=== PATIENT | female | born 1930 | race Caucasian/White ===

== ENCOUNTER 2017-02-05 22:24 | Inpatient (IN) | payer MEDICARE, OTHER ==
--- NOTE | ~2017-02-05 | DS ---
Discharge Summary [facility] [address] [facility] [place] [address] NAME: CHUCKY RODGERS : 31 STATUS : ADM IN PAT#: [id number] AGE: 86 ADM/REG DATE : 02/06/17 MR#: [id number] REPORT SERV DATE: 02/13/17 DICTATED BY: AURA CINTRON DATE: 02/12/17 REPORT STATUS : Draft TRANSCRIBED BY: MODL DATE: 02/12/17 ADMISSION DATE: 02/06/2017 DISCHARGE DATE: 02/13/2017 PRINCIPAL DIAGNOSIS: Right subcortical stroke. SECONDARY DIAGNOSES: 1. Severe right carotid stenosis. 2. Uncontrolled hypertension. 3. Dementia. HISTORY OF PRESENT ILLNESS: Please see dictation on 02/06/2017. HOSPITAL COURSE: The patient was admitted with TIA versus stroke symptoms. Stroke was in fact confirmed. She was found to have significant stenosis on her MRA which was revealed further to have evidence of 90-99% obstruction with an ulceration of the artery itself. She underwent carotid endarterectomy with good results. In the meantime, blood pressure was well controlled. She was weaned off clonidine due to cognitive side effects in the elderly, but she was placed on a regimen which included amlodipine with good results. She tolerated physical therapy well. If this patient go to a rehab center on 02/13/2017 she will follow up with Dr. Escobar in two weeks and Dr. Ribera, her primary care provider, following rehab discharge. ANTONIETA/GHASSAN Aura Cintron M.D. / [id number] CC: MD Maximo Villarreal MD Michael Greer, M.D.
--- NOTE | ~2017-02-05 | OP ---
Record Of Operation [facility] [address] [place]. [address] NAME: CHUCKY RODGERS : 31 STATUS : ADM IN PAT#: [id number] AGE: 86 ADM/REG DATE : 02/06/17 MR#: [id number] REPORT SERV DATE: 02/10/17 DICTATED BY: FLO PARRISH DATE: 02/10/17 REPORT STATUS : Draft TRANSCRIBED BY: MODL DATE: 02/10/17 DATE OF PROCEDURE: 02/09/2017 PREOPERATIVE DIAGNOSIS: High-grade right carotid stenosis with cerebrovascular accident. POSTOPERATIVE DIAGNOSIS: High-grade right carotid stenosis with cerebrovascular accident. PROCEDURE PERFORMED: Right carotid endarterectomy with bovine patch angioplasty. SURGEON: Flo Parrish M.D. TIN ROOFER: Gera Jimenez M.D. DESCRIPTION OF PROCEDURE: The patient was placed under general endotracheal anesthesia. Neck and chest prepped and draped in a sterile fashion. An incision was made along the anterior border of the sternocleidomastoid muscle. This carried through the skin and subcutaneous tissue. Platysma divided with the cautery unit. The deep cervical fascia was opened. The facial vein doubly clamped, divided, and tied with 3-0 silk suture. Common carotid artery dissected from surrounding tissue and encircled with vessel loops. The internal and external were dissected distally. She was already on a heparin drip and her ACT was over 3 minutes. The internal and external common were occluded. Arteriotomy made in the common extended through the bulb through a very tight irregular plaque in the internal. A #8 argyle shunt placed without difficulty. Endarterectomy carried out with the [place] elevator where the proximal plaque was cut sharply. The external done as an eversion, and the internal showed a small step-off that was tacked down with 6-0 Prolene suture. The opening in the vessel then closed with a bovine patch. Before the patch completed the shunt was removed. The patch completed and flow initially released to the external and then to the internal carotid artery. Surgicel placed over the patch. Irrigation carried out. Hemostasis was noted. The wound closed with 2-0 and 3-0 Vicryl for the deep tissue and the platysma. Skin closed with a 4-0 Monocryl subcuticular stitch. Sterile dressings applied. ESTIMATED BLOOD LOSS: 100 mL. She awoke from the operating room table moving all four extremities. MG/MODL Flo Parrish M.D. / [id number] CC: Record Of Operation [address] [address] NAME: CHUCKY RODGERS : 31 STATUS : ADM IN PAT#: [id number] AGE: 86 ADM/REG DATE : 02/06/17 MR#: [id number] REPORT SERV DATE: 02/10/17 DICTATED BY: FLO PARRISH DATE: 02/10/17 REPORT STATUS : Draft TRANSCRIBED BY: GHASSAN DATE: 02/10/17 Javier Baker MD
--- NOTE | ~2017-02-05 | DS ---
Discharge Summary [facility] [address] [place]. [address] NAME: CHUCKY RODGERS : 31 STATUS : DIS IN PAT#: [id number] AGE: 86 ADM/REG DATE : 02/06/17 MR#: [id number] REPORT SERV DATE: 02/16/17 DICTATED BY: TAMIKA COHN DATE: 02/15/17 REPORT STATUS : Draft TRANSCRIBED BY: MODL DATE: 02/15/17 ADMISSION DATE: 02/06/2017 DISCHARGE DATE: 02/15/2017 ADDENDUM: This dictation is an addition to the discharge summary dictated by Dr. Interiano on 02/13/2017, work number [id number]. The patient was discharged on 02/13/2017; however, unable to leave facility due to unavailability of beds at the longterm facility. I assumed care of the patient today, 02/14/2017. At the time of my assumption of care, the patient was hemodynamically stable. Placement has been found for the patient. Therefore, she will be discharged today. All other information in the discharge summary remains the same. RHIANNA/GHASSAN Tamika Cohn MD / [id number] CC: Tamika Cohn MD
--- NOTE | ~2017-02-05 | CN ---
Consultation Report [facility] [address] [place]. [address] NAME: CHUCKY RODGERS : 31 STATUS : ADM IN PAT#: [id number] AGE: 86 ADM/REG DATE : 02/06/17 MR#: [id number] REPORT SERV DATE: 02/08/17 DICTATED BY: DATE: REPORT STATUS : Draft TRANSCRIBED BY: MODDanna DATE: 02/08/17 CONSULTATION NOTE DATE OF CONSULTATION: 02/08/2017 REASON FOR CONSULTATION: Right grade 3 carotid stenosis. HISTORY OF PRESENT ILLNESS: Ms. Rodgers is a pleasant 86-year-old female, whom Vascular has asked to see in evaluation of possible symptomatic right grade 3 carotid artery stenosis. The patient was admitted to the hospital after going to the ER on Monday. She states that she fell multiple times at home and in general, felt very off balance. Her family members took her to the ER where she was evaluated and found to have acute stroke. The patient denies amaurosis fugax. No upper or lower extremity weakness or paresthesias. No slurred speech or facial droop. The patient does complain of generalized confusion and difficulty with thinking of some words. She again fell multiple times at home and has been generally weak since the onset of her symptoms this past Monday. She has no previous history of stroke. Her family members report that in November of 2016, she was found to have carotid stenosis after ultrasound by her primary care doctor was done. She was then referred to Vascular Surgery and seen by Dr. Dunn in [place]. Reportedly, Dr. Dunn did a carotid duplex, which showed bilateral grade 2 stenosis. However, the family members are unclear as to the exact amount of stenosis which was seen just a few months ago. She was to follow up in office with a repeat carotid duplex in 6 months. Her current symptoms have not improved, and she states that she feels much more stable when standing up and walking. Her blood pressure was also elevated upon admission and still remains so with a systolic in the 180s. She has been taking Plavix and aspirin prior to this hospital admission. PAST MEDICAL HISTORY: 1. Hypertension. 2. Neuropathy. 3. Osteoarthritis. 4. Cardiac murmur. 5. Chronic kidney disease, stage unknown. 6. Cataracts. 7. GERD. 8. History of gallstones. 9. Carotid artery stenosis. 10.Hyperlipidemia. PAST SURGICAL HISTORY: Hysterectomy, history of kidney stones with lithotripsy, and bilateral cataract removal. SOCIAL HISTORY: The patient is retired and lives alone, with family members who live close by. She denies tobacco, alcohol, or illicit drug use. She is . Consultation Report [facility] [place] [id number] [place]. [address] NAME: CHUCKY RODGERS : 31 STATUS : ADM IN PAT#: [id number] AGE: 86 ADM/REG DATE : 02/06/17 MR#: [id number] REPORT SERV DATE: 02/08/17 DICTATED BY: DATE: REPORT STATUS : Draft TRANSCRIBED BY: MODL DATE: 02/08/17 FAMILY MEDICAL HISTORY: Significant for diabetes, coronary artery disease, and hypertension. ALLERGIES: ASPIRIN. HOME MEDICATIONS: Allopurinol, Norvasc, Catapres, Caltrate, Refresh Tears, coenzyme Q10, Cymbalta, Lasix, Neurontin, levothyroxine, Namenda, Centrum Silver, fish oil, Prilosec, Klor Con, pravastatin, Exelon, grape seed extract, black lucero extract, magnesium, and Exforge. REVIEW OF SYSTEMS: 14-point review of systems was completed. Pertinent positives included in the history of present illness. All others negative. PHYSICAL EXAMINATION: VITAL SIGNS: Blood pressure 143/65, O2 saturation 95% on room air, oral temperature 97.9, pulse 90, respirations 18. GENERAL: The patient is alert and oriented x3, resting quietly in bedside recliner, in no apparent distress. HEENT: Head is atraumatic and normocephalic. Face symmetric. Mucous membranes are pink and moist. Tongue is midline. NECK: Trachea midline. No JVD. Loud mechanical right carotid bruit noted. RESPIRATORY: Respirations are even and nonlabored. Breath sounds clear to auscultation throughout. CARDIOVASCULAR: Heart rate and rhythm regular. No murmurs, rubs, or gallops. ABDOMEN: Soft, nontender, and nondistended. No pulsatile masses or abdominal bruits. Bowel sounds are active x4. EXTREMITIES: [place], warm, and dry. No edema. Pedal pulses are easily palpable bilaterally. LYMPH: No lymphadenopathy. NEURO: Mild essential tremors noted, bilateral upper extremities. Answering questions appropriately. Sensation is intact. [employer] are equal. PSYCH: Appropriate mood and affect. IMAGING: MRI of the brain done on 02/06/2017: Shows acute right periventricular region infarct in the mid centrum semiovale right side. There is no mass effect. No hemorrhage. Carotid duplex: Carotid duplex shows high grade stenosis seen within the right internal carotid artery with peak systolic velocities in the proximal of 661, end-diastolic velocity of 274. The mid internal carotid artery has a peak systolic velocity of 254 with an end- diastolic velocity of 73. Vertebral flow was antegrade. Left carotid artery, consistent with approximately 50% stenosis. Vertebral flow was antegrade. This duplex shows findings significant for high grade right carotid artery stenosis. ASSESSMENT AND PLAN: 1. Symptomatic grade 3 right carotid artery stenosis. 2. Acute cerebrovascular accident. I have discussed this patient with Dr. Flo Escobar and both, he and I have examined the Consultation Report [address] [place]. [address] NAME: CHUCKY RODGERS : 32 STATUS : ADM IN [facility]#: [id number] AGE: 86 ADM/REG DATE : 02/06/17 MR#: [id number] REPORT SERV DATE: 02/08/17 DICTATED BY: DATE: REPORT STATUS : Draft TRANSCRIBED BY: MODL DATE: 02/08/17 patient and reviewed her imaging studies. It was felt that she will require a right carotid endarterectomy as soon as possible. We are planning for surgery tomorrow afternoon. The risks and benefits of the procedure were explained to the patient and her family members, both of which verbalized understanding. We will continue her Plavix, and she will be started on a heparin drip. She will be made n.p.o. after midnight. Thank you for this consultation. KANDICE/GHASSAN Mignon Zelaya NP / [id number] CC: Javier Collins James R.
--- NOTE | ~2017-02-05 | HP ---
History And Physical [place] [address] [facility] [place]. [address] NAME: CHUCKY RODGERS : 31 STATUS : ADM Bimal PAT#: [id number] AGE: 86 ADM/REG DATE : 02/05/17 MR#: [id number] REPORT SERV DATE: 02/06/17 DICTATED BY: CAROLINA PAYAN DATE: 02/06/17 REPORT STATUS : Draft TRANSCRIBED BY: GHASSAN DATE: 02/06/17 DATE OF ADMISSION: 02/05/2017 CHIEF COMPLAINT: Falls and unsteadiness today with headache. HISTORY OF PRESENT ILLNESS: The patient is an 86-year-old female with past medical history of hypertension, neuropathy, mild CKD, reflux, arthritis, who presents after having a fall that occurred at approximately 1 o'clock. Did have four additional episodes today. Although the patient does have arthritic changes and has had occasional falls, she has not ever had this many at a certain time including one uniquely where she was standing and just fell straight backwards; however, her family members were there to catch her and give her support. The patient was aware of all these episodes but is having difficulty with balance fairly acutely today that have been constant, moderate. Additionally, the patient has had headache that has been dull without radiating. No nausea, vomiting, fever, chills, or diarrhea. Has had mild decreased p.o. intake over the last few days. Has had weight gain though. No worsening symptoms or relieving symptoms. Symptoms are reproducible by changing the patient's position. The patient has also noted to be hypertensive in the emergency room. The patient typically ambulates with cane but still not able to provide stability with this. REVIEW OF SYSTEMS: Additional 10-point review of systems negative for that noted in the HPI. PAST MEDICAL HISTORY: Hypertension; nerve ending neuropathy; arthritis deformities in hand; heart murmur; CKD; eye problems with cataract last year, bilateral removal; reflux; and gallstones. Sees Dr. Jones for neuropathy and had appointment at the end of this week. SURGICAL HISTORY: Hysterectomy, kidney stones, and bilateral cataracts. SOCIAL HISTORY: Accompanied by son, who is at bedside. Is retired. No smoking, alcohol, or illicits. FAMILY HISTORY: Noted for diabetes, coronary artery disease, hypertension. No cancers. ALLERGIES: ASPIRIN. HOME MEDICATIONS: Allopurinol, Norvasc, Refresh Tears, Caltrate, Catapres, CoQ10, Cymbalta, Lasix, Neurontin, levothyroxine, Namenda, Centrum, fish oil, Prilosec, Klor-Con, pravastatin, Exelon, grape seed, black lucero, magnesium, Exforge. PHYSICAL EXAMINATION: VITAL SIGNS: The patient's initial blood pressure was 213/100, has decreased down to 188/70s; temperature 98.9; pulse 97; respirations 22; O2 saturations 96% on room air. GENERAL: No acute distress. Elderly, pleasant. EYES: No scleral icterus. EOMI. ENT: Nares patent. Tongue midline. No JVD. History And Physical [address] [address] NAME: CHUCKY RODGERS : 31 STATUS : ADM Bimal PAT#: [id number] AGE: 86 ADM/REG DATE : 02/05/17 MR#: [id number] REPORT SERV DATE: 02/06/17 DICTATED BY: CAROLINA PAYAN DATE: 02/06/17 REPORT STATUS : Draft TRANSCRIBED BY: GHASSAN DATE: 02/06/17 RESPIRATORY: Clear to auscultation. No wheezes or rales. CV: Regular rate. No rubs but positive systolic ejection murmur, 2/6. GI: Soft, nontender, nondistended. Bowel sounds positive. : Deferred. MUSCULOSKELETAL: Moves all extremities x4. Does have resting tremor, right side. Skin: Warm, dry, thin skin. LYMPH: Trace edema bilaterally. HEME: No bleeding or bruising. NEURO: Mild essential tremor, right side. Is reported to have a shuffling gait, however, not tested at this time. The patient does have dizziness and almost reproducible falling episode when changing from sitting to standing. The patient unable to hold self up or sit up without falling directly backwards. No nystagmus. Sensation is still grossly intact. PSYCH: Appropriate mood and affect. LABORATORY DATA: BNP 108.4. Sodium 144, potassium 3.6, chloride 108, bicarb 26, BUN and creatinine 25 and 1.23, glucose 151. Magnesium 1.9. Troponin negative. Calcium 9.3. Cervical spine: No acute fracture or malalignment of the cervical spine, moderate to severe multilevel degenerative changes at C3-C7 and T1-T2. 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 WBC 8.4, H and H 13 and 37.4, MCV 98.4, platelets 195. INR 1.0. ASSESSMENT AND PLAN: 1. Accelerated hypertension. 2. Headache. 3. Unsteadiness. 4. Falls. 5. Arthritis. 6. Polypharmacy. 7. Carotid disease. PLAN: 1. For axillary hypertension, the patient has had improvement with increased clonidine but will need slow titration in p.r.n. as needed. Optimize as tolerated. As well while on low-dose beta ana, we will need to check orthostatics due to frequent falling episodes. 2. Headache. Check MRI head. Slightly improved with blood pressure improvement. Has had four to five falls. [address] head has been performed and neck. Monitor clinically. 3. Unsteadiness. We will check MRI/MRA with history of carotid disease and hypertension. Would like to rule out posterior vascular or cerebellar event. TIA orders are initiated. Non-tPA candidate seconds to acute issues that began at 1:00 p.m. but has had five subsequent issues although the patient unable to appreciate any additional focal neurologic deficits except that noted above. History And Physical [address] [address] NAME: CHUCKY RODGERS : 31 STATUS : ADM Bimal PAT#: [id number] AGE: 86 ADM/REG DATE : 02/05/17 MR#: [id number] REPORT SERV DATE: 02/06/17 DICTATED BY: CAROLINA PAYAN DATE: 02/06/17 REPORT STATUS : Draft TRANSCRIBED BY: MODL DATE: 02/06/17 4. Falls. PT workup for workup as above and does have positive arthritis-type symptoms. 5. Arthritis p.r.n. 6. Polypharmacy discussed with family. Information is given to the family. 7. Carotid disease. The patient reported to have significant disease, approximately 70% percent on one side. We will need to confirm these. We will get MRI/MRA. All questions answered with the patient and family. DISPOSITION: Pending findings from above. LEIAN/MADDIEL Carolina Payan MD / [id number]
--- NOTE | ~2017-02-05 | CN ---
Consultation Report [facility] [address] [place]. [address] NAME: CHUCKY RODGERS : 32 STATUS : ADM IN PAT#: [id number] AGE: 86 ADM/REG DATE : 02/06/17 MR#: [id number] REPORT SERV DATE: 02/08/17 DICTATED BY: DATE: REPORT STATUS : Draft TRANSCRIBED BY: MODL DATE: 02/08/17 NEUROLOGY CONSULTATION DATE OF CONSULTATION: 02/08/2017 REASON FOR CONSULT: Stroke. HISTORY OF PRESENT ILLNESS: This is an 86-year-old female presented to [facility] on 02/05/2017 secondary to frequent falls, with the patient has difficulty ambulating and has frequent falls. The patient's family also noticed the left-sided hemiparesis, especially with the left hand side and has difficulty holding on to things and not working as properly as before. The patient since the hospitalization was also noted to have mild delirium with the patient being confused regarding the place she is at and has a question of hallucination, at baseline the patient does have some memory difficulties, still recognize the family members, but seemed to have some difficult times knowing what year it is and the time. The patient at baseline is followed by Dr. Jones at [facility]. Prior to the hospitalization, no recent illness was noted. No fever, chill, nausea, vomiting, chest pain, or shortness of breath was reported and no recent changes in medication were otherwise reported. The patient's family denies any complaints of numbness and denies any dysarthria or language difficulties with the patient's symptoms, reports stable symptoms since the hospitalization. REVIEW OF SYSTEMS: Negative except for those mentioned in the HPI. PAST MEDICAL HISTORY: Significant for hypertension as well as neuropathy, arthritis with the patient noted to have a history of heart murmur as well as chronic kidney disease, bilateral cataract surgeries in the past with the patient also noted to have a history of dementia, seen by Dr. Simone Jones. SOCIAL HISTORY: Denies tobacco, alcohol, or recreational drug usage per medical record. FAMILY HISTORY: Significant for diabetes, coronary artery disease, hypertension. ALLERGIES: THE PATIENT WAS NOTED TO HAVE ALLERGIES TO ASPIRIN AT THE TIME OF EVALUATION. MEDICATIONS: The patient's home medication consist of allopurinol, Norvasc, Refresh tears, Caltrate, Catapres, coenzyme Q10, Cymbalta, Lasix, Neurontin, levothyroxine, Namenda, Centrum, fish oil, Prilosec, potassium, pravastatin, Exelon, magnesium, Exforge. Again, review of systems otherwise negative except for those mentioned in the HPI. PHYSICAL EXAMINATION: VITAL SIGNS: Overnight, the patient was noted to have vital signs with T-max of 99.7, heart Consultation Report [address] [place]. [address] NAME: CHUCKY RODGERS : 31 STATUS : ADM IN PAT#: [id number] AGE: 86 ADM/REG DATE : 02/06/17 MR#: [id number] REPORT SERV DATE: 02/08/17 DICTATED BY: DATE: REPORT STATUS : Draft TRANSCRIBED BY: MODDanna DATE: 02/08/17 rate of 70 to 90, respirations of 16 to 20, and blood pressure of 143 to 186 over 65 to 86. GENERAL: The patient is a well developed, well nourished, in no acute distress. CARDIOVASCULAR: Regular rate and rhythm. Mild cardiac murmur was otherwise auscultated. The patient was also noted to have carotid bruits on the right carotid artery. No carotid bruits were auscultated in the left carotid artery. PULMONARY: Clear to auscultation bilaterally. NEUROLOGICAL EXAMINATION: Generally, the patient is alert and oriented to person, place, but not to year or month. The patient is able to follow simple and 2-step commands. Mild decreased attention span. At the time of evaluation, difficulties with registration and recall. Cranial nerves II through XII, pupils equal, round, and reactive to light. Horizontal eye movement was noted to be intact with intact blink to threat response. The patient is able to follow simple and two-step commands, but has some difficulties with the complex commands. Reports symmetrical facial sensation. Symmetrical facial expression. Midline tongue. Normal palatal movement. Mild decreased hearing in bilateral ears. The patient demonstrated 5/5 right upper and right lower extremity strength with the patient noted to have a 4/5 left upper extremity strength and 4/5 left lower extremity strength. The patient does demonstrate normal [id number]-[id number] examination on the right upper extremity. Deep tendon reflex was hyperreflexic at 3+ in the left upper and left lower extremity, 2+ in the right upper and right lower extremity. Downgoing toe on the right plantar reflex. Upgoing toe on the left plantar reflex. Gait was not evaluated due to weakness. LABORATORY STUDIES: Demonstrated white blood cell count of 9.0, hemoglobin of 13.3, hematocrit of 39.6, platelet count of 181. Chemistry panel; sodium 143, potassium 3.8, chloride 109, bicarb 24, BUN of 20, creatinine 1.12, glucose of 96, calcium of 9.2. Fasting lipid panel; cholesterol of 141, HDL of 54, LDL of 48, triglyceride of 197. Vitamin B12 of 948, folate of 62. Serum TSH of 2.21, free T4 of 1.15. Hemoglobin A1c of 5.5. Urinalysis demonstrated negative leukocyte esterase, negative nitrites. The patient's MRI of the brain demonstrated right subcortical periventricular small stroke with the patient's MRA of the neck demonstrated the critical stenosis in the right internal carotid artery. Carotid Doppler study confirmed category 3 stenosis in the right internal carotid artery by velocity. Echocardiogram, otherwise demonstrated no apical thrombus. IMPRESSION: 1. Right subcortical middle cerebral artery stroke secondary to embolic events secondary to the patient's aspirin allergies. We will continue Plavix. Meanwhile, we will continue Lipitor, PT/OT, rehab placement. The patient's symptoms started on 02/05/2017. NIH stroke scale was noted to be 4. 2. Right internal carotid artery stenosis. The patient is scheduled for right carotid endarterectomy in the morning. RECOMMENDATION: 1. Plavix. 2. Right carotid endarterectomy in the morning. Consultation Report [address] [address] NAME: CHUCKY RODGERS : 32 STATUS : ADM IN [facility]#: [id number] AGE: 86 ADM/REG DATE : 02/06/17 MR#: [id number] REPORT SERV DATE: 02/08/17 DICTATED BY: DATE: REPORT STATUS : Draft TRANSCRIBED BY: MODL DATE: 02/08/17 3. Lipitor 80 mg p.o. at bedtime. 4. PT/OT. 5. Rehab. 6. We will not start aspirin as the patient was noted to have allergy to aspirin. [facility]/MADDIEL Grover Parekh MD / [id number] CC: Javier Baker JAMES R.
[~2017-02-05 22:24] MED LIST: CALTRA600D PO; CENTRUM TAB1 TAB PO; CYMBALTA30 PO; EXELON9.5T TOP; EXFORGE1 TA1 PO; FISH OIL1200 MG PO; GRAPE SEED EXTRACT PO; KLOR-CON M2020 MEQ PO; L40 PO; LYRICA25 PO; MAGNESIUM PO; NATURA2 OPH; PRAVACHOL40 MG PO; PRILO PO; RESTASIS OPH; SYN88 PO; VITAMIN D3 PO; Z300 PO
[2017-02-05 22:53] LABS: BASOPHILS 0.2 %; BASOPHILS ABSOLUTE 0.02 10/3/uL (0.0-0.16); EOSINOPHILS 3.1 %; EOSINOPHILS ABSOLUTE 0.26 10/3/uL (0.0-0.53); HEMATOCRIT 37.4 % (36.0-48.0); IMMATURE GRANULOCYTES 0.2 %; IMMATURE GRANULOCYTES ABSOLUTE 0.02 10/3/uL (0.0-0.11); LYMPHOCYTES 32.2 %; LYMPHOCYTES ABSOLUTE 2.71 10/3/uL (0.67-4.30); MEAN CORPUS HGB CONC 34.8 g/dL (32.0-36.0); MEAN CORPUSCULAR HEMOGLOB 34.2 pg (26.0-34.0); MEAN CORPUSCULAR VOLUME 98.4 fL (80-100); MEAN PLATELET VOLUME 10.4 fL (9.2-13.0); MONOCYTES 6.7 %; MONOCYTES ABSOLUTE 0.56 10/3/uL (0.21-1.20); NEUTROPHILS 57.6 %; NEUTROPHILS ABSOLUTE 4.84 10/3/uL (2.02-8.40); PLATELET COUNT 195 10/3/uL (150-400); RBC DISTRIBUTION WIDTH 13.2 % (12.0-16.0); WHITE BLOOD CELLS 8.4 10/3/uL (4.5-10.5)
[2017-02-05 22:54] LABS: MANUAL DIFF NO %
[2017-02-05 23:00] LABS: PARTIAL THROMBO TIME 30.2 SEC (22.5-37.2); PROTIME (NOT ORD) 13.3 SEC (12.0-14.5)
[2017-02-05 23:09] LABS: CALCIUM, SERUM 9.3 MG/DL (8.5-10.4); CHEST PAIN PROFILE TAT 0 Hrs 22 Mins; CHLORIDE, SERUM 108 MMOL/L (96-112); CO2 (CARBON DIOXIDE) 26 MMOL/L (24-34); CREATININE 1.23 MG/DL (0.55-1.02); GFR AFRICAN AMERICAN 46 ML/MIN (>=60); GFR NON AFRICAN AMERICAN 40 ML/MIN (>=60); GLUCOSE, SERUM 151 MG/DL (60-99); SODIUM, SERUM 144 MMOL/L (135-148); TROPONIN I <0.02 NG/ML (<0.05)
[2017-02-05 23:11] LABS: BUN (BLOOD UREA NITROGEN) 25 MG/DL (6-23); POTASSIUM, SERUM 3.6 MMOL/L (3.5-5.3)
[2017-02-05] MEDS ORDERED: PRILO PO (23:20)
[2017-02-05] MEDS ORDERED: LEVOTHYROXIN88 MCG PO (23:21)
[2017-02-05] MEDS ORDERED: FISH-EPA1000 MG PO (23:21)
[2017-02-05] MEDS ORDERED: CENTRUM PO (23:21)
[2017-02-05] MEDS ORDERED: NORV25 PO (23:22)
[2017-02-05] MEDS ORDERED: Z300 PO (23:22)
[2017-02-05] MEDS ORDERED: KLOR-CON M2020 MEQ PO (23:22)
[2017-02-05] MEDS ORDERED: NAMENXR28 PO (23:23)
[2017-02-05] MEDS ORDERED: PRAVACHOL40 MG PO (23:23)
[2017-02-05] MEDS ORDERED: NEUR100 PO (23:23)
[2017-02-05] MEDS ORDERED: CO Q-10100 MG PO (23:23)
[2017-02-05] MEDS ORDERED: CALTRA600D PO (23:23)
[2017-02-05] MEDS ORDERED: BLACK CHERRY PO (23:24)
[2017-02-05] MEDS ORDERED: [UNRECOGNIZED DRUG - OTHER] PO (23:24)
[2017-02-05] MEDS ORDERED: CYMBALTA30 PO (23:25)
[2017-02-05] MEDS ORDERED: MAGNESIUM PO (23:25)
[2017-02-05] MEDS ORDERED: EXFORGE 5/320 PO (23:26)
[2017-02-05] MEDS ORDERED: L40 PO (23:26)
[2017-02-05] MEDS ORDERED: REFRESH OPH (23:27)
[2017-02-05] MEDS ORDERED: EXELON1 EACH TOP (23:27)
[2017-02-05] MEDS ORDERED: CATPATCH1 TOP (23:27)
[2017-02-06 01:17] LABS: ASCORBIC ACID (UR NOT ORDER) NEG (NEG); BILIRUBIN, URINE NEGATIVE (NEG); ER URINALYSIS TAT 0 Hrs 00 Mins; KETONE, URINE NEGATIVE (NEG); LEUKOCYTE ESTERASE(NOT OR NEG (NEG); NITRITE (URINE) NEG (NEG); WBC (NOT ORDERED) (RFLEX) 1 (0-5)
[2017-02-06 03:49] LABS: CHOL/HDL RATIO(NOT ORDER) 2.6 (0-5); CHOLESTEROL 141 MG/DL (< 200); CPK 92 U/L (0-200); FREE T4 1.15 NG/DL (0.76-1.46); HDL CHOLESTEROL 54 MG/DL (> 49); LDL CHOLESTEROL 48 MG/DL (< 130); NON-HDL CHOLESTEROL 87 MG/DL (< 160); TRIGLYCERIDE 197 MG/DL (< 150)
[2017-02-06 14:46] LABS: TROPONIN I <0.02 NG/ML (<0.05)
[2017-02-06 14:48] LABS: CK-MB 2.3 NG/ML; CPK 71 U/L (0-200)
[2017-02-06 15:35] LABS: BUN (BLOOD UREA NITROGEN) 19 MG/DL (6-23); CHLORIDE, SERUM 108 MMOL/L (96-112); CO2 (CARBON DIOXIDE) 25 MMOL/L (24-34); CREATININE 1.02 MG/DL (0.55-1.02); GFR AFRICAN AMERICAN 58 ML/MIN (>=60); GFR NON AFRICAN AMERICAN 50 ML/MIN (>=60); GLUCOSE, SERUM 131 MG/DL (60-99); POTASSIUM, SERUM 3.5 MMOL/L (3.5-5.3); SODIUM, SERUM 143 MMOL/L (135-148)
[2017-02-07 00:06] LABS: CK-MB 3.1 NG/ML; CPK 97 U/L (0-200)
[2017-02-07 08:44] LABS: BUN (BLOOD UREA NITROGEN) 15 MG/DL (6-23); CALCIUM, SERUM 9.6 MG/DL (8.5-10.4); CHLORIDE, SERUM 107 MMOL/L (96-112); CO2 (CARBON DIOXIDE) 26 MMOL/L (24-34); CREATININE 1.04 MG/DL (0.55-1.02); GFR AFRICAN AMERICAN 57 ML/MIN (>=60); GFR NON AFRICAN AMERICAN 49 ML/MIN (>=60); GLUCOSE, SERUM 119 MG/DL (60-99); POTASSIUM, SERUM 3.7 MMOL/L (3.5-5.3); SODIUM, SERUM 142 MMOL/L (135-148)
[2017-02-08 04:52] LABS: BASOPHILS 0.1 %; BASOPHILS ABSOLUTE 0.01 10/3/uL (0.0-0.16); EOSINOPHILS 2.2 %; HEMATOCRIT 39.6 % (36.0-48.0); HEMOGLOBIN 13.3 g/dL (12.0-16.0); IMMATURE GRANULOCYTES 0.6 %; IMMATURE GRANULOCYTES ABSOLUTE 0.05 10/3/uL (0.0-0.11); LYMPHOCYTES 26.8 %; MEAN CORPUS HGB CONC 33.6 g/dL (32.0-36.0); MEAN CORPUSCULAR HEMOGLOB 33.3 pg (26.0-34.0); MEAN PLATELET VOLUME 9.8 fL (9.2-13.0); MONOCYTES 8.8 %; MONOCYTES ABSOLUTE 0.79 10/3/uL (0.21-1.20); NEUTROPHILS 61.5 %; PLATELET COUNT 181 10/3/uL (150-400); RBC DISTRIBUTION WIDTH 13.4 % (12.0-16.0)
[2017-02-08 04:53] LABS: MANUAL DIFF NO %
[2017-02-08 05:16] LABS: CALCIUM, SERUM 9.2 MG/DL (8.5-10.4); CHLORIDE, SERUM 109 MMOL/L (96-112); CO2 (CARBON DIOXIDE) 24 MMOL/L (24-34); CREATININE 1.12 MG/DL (0.55-1.02); GFR AFRICAN AMERICAN 52 ML/MIN (>=60); GFR NON AFRICAN AMERICAN 45 ML/MIN (>=60); GLUCOSE, SERUM 96 MG/DL (60-99); POTASSIUM, SERUM 3.8 MMOL/L (3.5-5.3); SODIUM, SERUM 143 MMOL/L (135-148)
[2017-02-08 05:17] LABS: BUN (BLOOD UREA NITROGEN) 20 MG/DL (6-23)
[2017-02-09 06:42] LABS: CALCIUM, SERUM 9.2 MG/DL (8.5-10.4); CHLORIDE, SERUM 108 MMOL/L (96-112); CO2 (CARBON DIOXIDE) 24 MMOL/L (24-34); CREATININE 1.45 MG/DL (0.55-1.02); GFR AFRICAN AMERICAN 38 ML/MIN (>=60); GFR NON AFRICAN AMERICAN 33 ML/MIN (>=60); GLUCOSE, SERUM 113 MG/DL (60-99); SODIUM, SERUM 142 MMOL/L (135-148)
[2017-02-09 06:44] LABS: BUN (BLOOD UREA NITROGEN) 35 MG/DL (6-23)
[2017-02-10 04:02] LABS: CALCIUM, SERUM 8.9 MG/DL (8.5-10.4); CHLORIDE, SERUM 106 MMOL/L (96-112); CO2 (CARBON DIOXIDE) 25 MMOL/L (24-34); CREATININE 1.44 MG/DL (0.55-1.02); GFR AFRICAN AMERICAN 38 ML/MIN (>=60); GFR NON AFRICAN AMERICAN 33 ML/MIN (>=60); POTASSIUM, SERUM 4.1 MMOL/L (3.5-5.3); SODIUM, SERUM 142 MMOL/L (135-148)
[2017-02-10 04:16] LABS: BUN (BLOOD UREA NITROGEN) 39 MG/DL (6-23); GLUCOSE, SERUM 136 MG/DL (60-99)
[2017-02-12 07:02] LABS: BASOPHILS 0.3 %; BASOPHILS ABSOLUTE 0.02 10/3/uL (0.0-0.16); EOSINOPHILS 2.4 %; EOSINOPHILS ABSOLUTE 0.14 10/3/uL (0.0-0.53); HEMOGLOBIN 12.5 g/dL (12.0-16.0); IMMATURE GRANULOCYTES 0.7 %; IMMATURE GRANULOCYTES ABSOLUTE 0.04 10/3/uL (0.0-0.11); LYMPHOCYTES 27.1 %; MEAN CORPUS HGB CONC 32.9 g/dL (32.0-36.0); MEAN CORPUSCULAR VOLUME 100.3 fL (80-100); MEAN PLATELET VOLUME 10.4 fL (9.2-13.0); MONOCYTES 8.1 %; MONOCYTES ABSOLUTE 0.48 10/3/uL (0.21-1.20); NEUTROPHILS 61.4 %; NEUTROPHILS ABSOLUTE 3.62 10/3/uL (2.02-8.40); RBC DISTRIBUTION WIDTH 13.5 % (12.0-16.0); RED CELL COUNT 3.79 10/6/uL (4.0-5.6); WHITE BLOOD CELLS 5.9 10/3/uL (4.5-10.5)
[2017-02-12 07:11] LABS: BUN (BLOOD UREA NITROGEN) 36 MG/DL (6-23); CALCIUM, SERUM 9.3 MG/DL (8.5-10.4); CHLORIDE, SERUM 106 MMOL/L (96-112); CO2 (CARBON DIOXIDE) 27 MMOL/L (24-34); CREATININE 1.25 MG/DL (0.55-1.02); GFR AFRICAN AMERICAN 45 ML/MIN (>=60); GFR NON AFRICAN AMERICAN 39 ML/MIN (>=60); GLUCOSE, SERUM 97 MG/DL (60-99); SODIUM, SERUM 143 MMOL/L (135-148)
[2017-02-12 07:47] LABS: MANUAL DIFF NO %; PLATELET COUNT 122 10/3/uL (150-400)
== END 2017-02-15 16:08 | DRG 39 ==
LOC: ER 22:24 → ER/OF 23:59 → CDU1 02-06 06:00 → CDU2 02-06 10:20 → SDC/OF 02-09 11:05 → CVICU 02-09 16:34 → 2SO 02-10 16:17
PROVIDERS: Emergency Medicine; Hospitalist; Internal Medicine; Surgery Vascular Surgery
PROC: 03UK0KZ Supplement Right Internal Carotid Artery with Nonautologous Tissue Substitute, Open Approach (ICD-10-PCS; 2017-02-09)
PROC: 03CK0ZZ Extirpation of Matter from Right Internal Carotid Artery, Open Approach (ICD-10-PCS; principal; 2017-02-09 12:15)
DX: I63.131 Cerebral infarction due to embolism of right carotid artery (principal); G62.9 Polyneuropathy, unspecified; F03.90 Unspecified dementia, unspecified severity, without behavioral disturbance, psychotic disturbance, mood disturbance, and anxiety; Z92.82 Status post administration of tPA (rtPA) in a different facility within the last 24 hours prior to admission to current facility; W18.30XA Fall on same level, unspecified, initial encounter; I12.9 Hypertensive chronic kidney disease with stage 1 through stage 4 chronic kidney disease, or unspecified chronic kidney disease; M19.90 Unspecified osteoarthritis, unspecified site; N18.9 Chronic kidney disease, unspecified; Z98.890 Other specified postprocedural states; Z82.49 Family history of ischemic heart disease and other diseases of the circulatory system; Z83.3 Family history of diabetes mellitus
CPT/HCPCS: 70450; 70544; 70548; 70551-52; 71010; 72125; 73502-LT; 80048; 80061; 81001; 82550; 82553; 82607; 82746; 82962; 83036; 83735; 83880; 84439; 84443; 84484; 85025; 85347; 85610; 85730; 88304; 88311; 93005; 93306; 93880; 97110-GP; 97116-GP; 97161-GP; 97164-GP; 97165-GO; 97168-GO; 99291; A9270-GY; A9577; C1768; G8978-CK-GP; G8979-CJ-GP; G8987-CK-GO; G8988-CJ-GO; J0360; J0461; J0690; J2250; J2270; J2370; J2405; J2710; J3010